=== PATIENT | male | born 1965 | race Caucasian/White ===

== ENCOUNTER 2016-10-09 12:15 | Emergency (ER) | payer OTHER ==
--- NOTE | 2016-10-09 12:35 | PDOC ---
History of Present Illness - General History Source: Patient Exam Limitations: No Limitations - History of Present Illness Initial Comments: 10/09/16 15:20 The patient is a 50 year old male with pmhx of hyperlipidemia (non compliant with medications) who presents to the ED with abdominal pain. Patient notes that the abdominal pain is localized to the RUQ radiating to the back. Patient reports that the pain was of sudden onset while he was sitting and watching TV. Patient notes that the pain worsened yesterday after eating chicken wings, fries and drinking soda during the SuperBowl. SH: Non smoker, occasional alcohol use, no illicit drug use <Olive Sellers - Last Filed: 10/09/16 16:12> <Aleksandr Liu - Last Filed: 10/09/16 16:27> - General Stated Complaint: ABD PAIN, BACK PAIN Time Seen by Provider: 10/09/16 12:34 Past History <Olive Sellers - Last Filed: 10/09/16 16:12> - Surgical History Abdominal Surgery: (hernia) - Psycho/Social/Smoking Cessation Hx Anxiety: No Suicidal Ideation: No Smoking History: Never smoked Have you smoked in the past 12 months: No Hx Alcohol Use: Yes (SOCIAL) Drug/Substance Use Hx: No Substance Use Type: None <Aleksandr Liu - Last Filed: 10/09/16 16:27> - Past Medical History Allergies/Adverse Reactions: Allergies Allergy/AdvReac Type Severity Reaction Status Date / Time No Known Allergies Allergy Verified 10/09/16 12:41 Home Medications: Ambulatory Orders Ondansetron [Zofran *Odt*] 8 mg SL TID #30 od.tablet 10/09/16 Oxycodone HCl/Acetaminophen [Percocet 5-325 mg Tablet] 1 - 2 tab PO Q4H #20 tablet MDD 6 10/09/16 Review of Systems - Review of Systems Able to Perform ROS?: Yes Comments:: 10/09/16 15:20 GENERAL/CONSTITUTIONAL: No fever or chills. No weakness. HEAD, EYES, EARS, NOSE AND THROAT: No change in vision. No ear pain or discharge. No sore throat. CARDIOVASCULAR: No chest pain or shortness of breath. RESPIRATORY: No cough, wheezing, or hemoptysis. GASTROINTESTINAL: +RUQ abdominal pain. No nausea, vomiting, diarrhea or constipation. GENITOURINARY: No dysuria, frequency, or change in urination. MUSCULOSKELETAL: No joint or muscle swelling or pain. No neck or back pain. SKIN: No rash NEUROLOGIC: No headache, vertigo, loss of consciousness, or change in strength/ sensation. ENDOCRINE: No increased thirst. No abnormal weight change. HEMATOLOGIC/LYMPHATIC: No anemia, easy bleeding, or history of blood clots. ALLERGIC/IMMUNOLOGIC: No hives or skin allergy. <Olive Sellers - Last Filed: 10/09/16 16:12> *Physical Exam - Vital Signs Last Vital Signs Temp Pulse Resp BP Pulse Ox 98.4 F 67 18 141/85 100 10/09/16 12:42 10/09/16 12:42 10/09/16 12:42 10/09/16 12:42 10/09/16 12:42 - Physical Exam Comments: 10/09/16 15:21 GENERAL: Awake, alert, and fully oriented, in no acute distress HEAD: No signs of trauma EYES: PERRLA, EOMI, sclera anicteric, conjunctiva clear ENT: Auricles normal inspection, hearing grossly normal, nares patent, oropharynx clear without exudates. Moist mucosa NECK: Normal ROM, supple, no lymphadenopathy, JVD, or masses LUNGS: Breath sounds equal, clear to auscultation bilaterally. No wheezes, and no crackles HEART: Regular rate and rhythm, normal S1 and S2, no murmurs, rubs or gallops ABDOMEN: +RUQ tenderness, negative Yeung's. Soft, normoactive bowel sounds. No guarding, no rebound. No masses EXTREMITIES: Normal range of motion, no edema. No clubbing or cyanosis. No cords, erythema, or tenderness NEUROLOGICAL: Cranial nerves II through XII grossly intact. Normal speech, normal gait SKIN: Warm, Dry, normal turgor, no rashes or lesions noted. <Olive Sellers - Last Filed: 10/09/16 16:12> ED Treatment Course - LABORATORY CBC & Chemistry Diagram: 10/09/16 13:16 10/09/16 13:16 - ADDITIONAL ORDERS Additional order review: Laboratory Results 10/09/16 13:16 Sodium 139 Potassium 4.2 Chloride 102 Carbon Dioxide 24 Anion Gap 13 BUN 20 H Creatinine 1.0 Creat Clearance w eGFR > 60 Random Glucose 134 H D Calcium 8.7 Total Bilirubin 0.7 AST 24 D ALT 35 Alkaline Phosphatase 103 Total Protein 7.3 Albumin 4.2 Lipase 129 10/09/16 13:16 RBC 5.27 MCV 85.2 MCHC 34.3 RDW 13.2 MPV 8.4 Neutrophils % 81.6 D Lymphocytes % 10.7 D Monocytes % 6.6 Eosinophils % 0.8 Basophils % 0.3 - RADIOLOGY Radiology Studies Ordered: 10/09/16 16:13 EXAM#: US/ABDOMEN US IMPRESSION: Multiple gallstones with diffuse thickening of its wall and without evidence of pericholecystic free fluid. Correlate clinically for further evaluation. Mild fatty infiltration of the liver versus hepatocellular disease. Please correlate with liver enzymes. - Medications Given in the ED: ED Medications Discontinued Medications Generic Name Dose Route Start Last Admin Trade Name Freq PRN Reason Stop Dose Admin Morphine Sulfate 4 mg 10/09/16 13:49 10/09/16 13:17 Morphine Injection - IVPUSH 10/09/16 13:50 4 mg ONCE ONE Administration Ondansetron HCl 4 mg 10/09/16 13:45 10/09/16 13:16 Zofran Injection IVPUSH 10/09/16 13:46 4 mg ONCE ONE Administration <Olive Sellers - Last Filed: 10/09/16 16:12> - LABORATORY CBC & Chemistry Diagram: 10/09/16 13:16 10/09/16 13:16 <Aleksandr Liu - Last Filed: 10/09/16 16:27> Medical Decision Making - Medical Decision Making 10/09/16 15:25 The patient is a 50 year old male with pmhx of HLD (non compliant with medication) who presents to the ED with RUQ abdominal pain. Will order imaging and labs and reassess after the results are back. <Olive Sellers - Last Filed: 10/09/16 16:12> *DC/Admit/Observation/Transfer - Attestations Scribe Attestion: 10/09/16 15:25 Documentation prepared by KELECHI Garcia, acting as medical intern for Aleksandr Liu MD/. <Olive Sellers - Last Filed: 10/09/16 16:12> - Discharge Dispostion Admit: No - Attestations Physician Attestion: 10/09/16 12:35 I, Dr. Aleksandr Liu, attest that this document has been prepared under my direction and personally reviewed by me in its entirety. I further attest, that it accurately reflects all work, treatment, procedures and medical decision -making performed by me. <Aleksandr Liu - Last Filed: 10/09/16 16:27> Diagnosis at time of Disposition: Calculus of gallbladder, Multiple gallstones - Discharge Dispostion Disposition: HOME Condition at time of disposition: Good - Prescriptions Prescriptions: Oxycodone HCl/Acetaminophen [Percocet 5-325 mg Tablet] 1 - 2 tab PO Q4H #20 tablet MDD 6 Ondansetron [Zofran *Odt*] 8 mg SL TID #30 od.tablet - Patient Instructions Additional Instructions: Chi- You need to follow up with a general surgeon to have your gall bladder taken out. Until that time you can not eat fat.... sorry. Return to us if worse or any new symptoms. Call Dr Marcos tomorrow tp set up the appointment. Percocet is only for outrageous pain .... Zofran is for Nausea or upset stomach. I hope you feel better soon- Best- Dr. Aleksandr Liu
[2016-10-09 12:43] VITALS: BMI 30.7
[2016-10-09] MEDS ORDERED: morphine CARPU-JECT 4 MG/1 ML DISP.SYRIN ONE (13:15)
[2016-10-09] MEDS ORDERED: ONDANSETRON 4 MG/2 ML VIAL ONE (13:15)
[2016-10-09 13:29] LABS: BASOPHIL 0.3 % (0-2.0); EOSINOPHIL 0.8 % (0-4.5); MCH 29.2 pg (25.7-33.7); MCHC 34.3 g/dl (32.0-35.9); MEAN CELL VOLUME 85.2 fl (80-96); MEAN PLT VOLUME 8.4 fl (7.5-11.1); NEUTROPHILS 81.6 % (42.8-82.8); PLATELET COUNT 165 K/MM3 (134-434); RDW 13.2 % (11.9-15.9); WHITE BLOOD COUNT 6.3 K/mm3 (4.0-10.0)
[2016-10-09] MEDS ORDERED: ONDANSETRON 4 MG/2 ML VIAL IVPUSH ONE (13:45)
[2016-10-09] MEDS ORDERED: morphine CARPU-JECT 4 MG/1 ML DISP.SYRIN IVPUSH ONE (13:49)
[2016-10-09 13:50] LABS: ALBUMIN 4.2 g/dl (3.4-5.0); ANION GAP 13 (8-16); BILIRUBIN,TOTAL 0.7 mg/dL (0.2-1.0); CALCIUM 8.7 mg/dL (8.5-10.1); CO2 24 mmol/L (21-32); GLUCOSE,RANDOM 134 mg/dL (74-106); SGOT/AST 24 U/L (15-37); SGPT/ALT 35 U/L (12-78); TOT PROT 7.3 g/dl (6.4-8.2)
[2016-10-09 13:51] LABS: ALK PHOS 103 U/L (45-117)
[2016-10-09 16:56] VITALS: BP 136/85; PULSE 78; TEMP 98.6
== END 2016-10-09 16:56 | disposition home or self-care (01) ==
LOC: JER 12:15
PROC: 3E033NZ Introduction of Analgesics, Hypnotics, Sedatives into Peripheral Vein, Percutaneous Approach (ICD-10-PCS; principal; 2016-10-09)
PROC: 3E033GC Introduction of Other Therapeutic Substance into Peripheral Vein, Percutaneous Approach (ICD-10-PCS; 2016-10-09)
DX: K80.80 Other cholelithiasis without obstruction (principal); E78.5 Hyperlipidemia, unspecified
CPT/HCPCS: 36415; 76705-TC; 80053; 83690; 85025; 99284-25

== ENCOUNTER 2017-01-01 10:45 | Emergency (ER) | payer OTHER ==
[2017-01-01 11:21] VITALS: BMI 30.7
[2017-01-01] MEDS ORDERED: SODIUM CHLORIDE 1,000 ML IV ONE (11:32)
[2017-01-01 12:05] LABS: BASOPHIL 0.2 % (0-2.0); EOSINOPHIL 0.2 % (0-4.5); MCH 29.1 pg (25.7-33.7); MCHC 34.1 g/dl (32.0-35.9); MEAN CELL VOLUME 85.3 fl (80-96); MEAN PLT VOLUME 8.4 fl (7.5-11.1); NEUTROPHILS 78.9 % (42.8-82.8); PLATELET COUNT 172 K/MM3 (134-434); RDW 13.6 % (11.9-15.9); WHITE BLOOD COUNT 6.4 K/mm3 (4.0-10.0)
[2017-01-01 12:23] LABS: ALBUMIN 4.4 g/dl (3.4-5.0); ALK PHOS 118 U/L (45-117); ANION GAP 13 (8-16); BILIRUBIN,TOTAL 0.8 mg/dL (0.2-1.0); CALCIUM 9.1 mg/dL (8.5-10.1); CO2 25 mmol/L (21-32); COCKROFT - GAULT 85.46; CREATININE 1.2 mg/dL (0.7-1.3); GLUCOSE,RANDOM 129 mg/dL (74-106); SGOT/AST 21 U/L (15-37); SGPT/ALT 38 U/L (12-78); TOT PROT 8.3 g/dl (6.4-8.2)
--- NOTE | 2017-01-01 12:51 | PDOC ---
History of Present Illness - General History Source: Patient, Old Records Exam Limitations: No Limitations - History of Present Illness Initial Comments: 01/01/17 14:13 The patient is a 51 year old male, with a significant past medical history of diverticulitis, who presents to the emergency department with nausea, vomiting and diarrhea since yesterday morning. The patient reports approximately 10 episodes of nonbilious nonbloody vomiting and diarrhea since yesterday. The patient additionally reports abdominal pain which he reports is worst in the RLQ. The patient reports that he took Pepto Bismol yesterday, with no relief of symptoms. The patient denies fever, chills or dysuria. The patient denies any bad foods, he reports that he consumed all the same food as the rest of his family over the past couple of days and no one else is experiencing similar symptoms. The patient denies any recent travel. Allergies: None reported. Past Surgical History: Cholecystectomy, Hernia Repair. Social History: Non smoker. Reports occasional alcohol consumption. Denies drug use. PCP: Dr. Allan Galindo <Yajaira Aarmbula - Last Filed: 01/01/17 16:50> <Acacia Lewis - Last Filed: 01/02/17 12:48> - General Chief Complaint: Pain Stated Complaint: ABD PAIN, VOMITING Time Seen by Provider: 01/01/17 12:37 Past History <Yajaira Arambula - Last Filed: 01/01/17 16:50> - Past Medical History GI Disorders: Yes (diverticulitis) - Surgical History Abdominal Surgery: Yes (hernia) Cholecystectomy: Yes - Psycho/Social/Smoking Cessation Hx Anxiety: No Suicidal Ideation: No Smoking History: Never smoked Have you smoked in the past 12 months: No Information on smoking cessation initiated: No Hx Alcohol Use: No Drug/Substance Use Hx: No Substance Use Type: Alcohol <Acacia Lewis - Last Filed: 01/02/17 12:48> - Past Medical History Allergies/Adverse Reactions: Allergies Allergy/AdvReac Type Severity Reaction Status Date / Time No Known Allergies Allergy Verified 01/01/17 11:21 Home Medications: Ambulatory Orders Ondansetron [Zofran -] 4 mg PO TID PRN #21 tablet 01/01/17 Review of Systems - Review of Systems Able to Perform ROS?: Yes Comments:: 01/01/17 13:54 GENERAL/CONSTITUTIONAL: No fever or chills. No weakness. HEAD, EYES, EARS, NOSE AND THROAT: No change in vision. No ear pain or discharge. No sore throat. CARDIOVASCULAR: No chest pain or shortness of breath. RESPIRATORY: No cough, wheezing, or hemoptysis. GASTROINTESTINAL: +Nausea, vomiting, diarrhea, abdominal pain. No constipation. GENITOURINARY: No dysuria, frequency, or change in urination. MUSCULOSKELETAL: No joint or muscle swelling or pain. No neck or back pain. SKIN: No rash. NEUROLOGIC: No headache, vertigo, loss of consciousness, or change in strength/ sensation. ENDOCRINE: No increased thirst. No abnormal weight change. HEMATOLOGIC/LYMPHATIC: No anemia, easy bleeding, or history of blood clots. ALLERGIC/IMMUNOLOGIC: No hives or skin allergy. <Yajaira Arambula - Last Filed: 01/01/17 16:50> *Physical Exam - Vital Signs Last Vital Signs Temp Pulse Resp BP Pulse Ox 98.5 F 95 H 18 130/90 100 01/01/17 11:05 01/01/17 11:05 01/01/17 11:05 01/01/17 11:05 01/01/17 11:05 - Physical Exam Comments: 01/01/17 14:11 GENERAL: Awake, alert, and fully oriented, in no acute distress. HEAD: No signs of trauma. EYES: PERRLA, EOMI, sclera anicteric, conjunctiva clear. ENT: Dry mucosa. Auricles normal inspection, hearing grossly normal, nares patent, oropharynx clear without exudates. NECK: Normal ROM, supple, no lymphadenopathy, JVD, or masses. LUNGS: Breath sounds equal, clear to auscultation bilaterally. No wheezes, and no crackles. HEART: Regular rate and rhythm, normal S1 and S2, no murmurs, rubs or gallops. ABDOMEN: RLQ tenderness with guarding. No rebound. Soft, normoactive bowel sounds. No masses. EXTREMITIES: Normal range of motion, no edema. No clubbing or cyanosis. No cords , erythema, or tenderness. NEUROLOGICAL: Cranial nerves II through XII intact. Normal speech, normal gait. SKIN: Warm, dry, normal turgor, no rashes or lesions noted. <[place],Yajaira - Last Filed: 01/01/17 16:50> - Vital Signs Last Vital Signs Temp Pulse Resp BP Pulse Ox 98.5 F 95 H 18 130/90 100 01/01/17 11:05 01/01/17 11:05 01/01/17 11:05 01/01/17 11:05 01/01/17 11:05 <Acacia Lewis - Last Filed: 01/02/17 12:48> ED Treatment Course - LABORATORY CBC & Chemistry Diagram: 01/01/17 11:43 01/01/17 11:43 - ADDITIONAL ORDERS Additional order review: Laboratory Results 01/01/17 11:43 Sodium 138 Potassium 4.0 Chloride 100 Carbon Dioxide 25 Anion Gap 13 BUN 27 H D Creatinine 1.2 Creat Clearance w eGFR > 60 Random Glucose 129 H Calcium 9.1 Total Bilirubin 0.8 AST 21 ALT 38 Alkaline Phosphatase 118 H Total Protein 8.3 H Albumin 4.4 Lipase 72 L 01/01/17 11:43 RBC 5.94 H MCV 85.3 MCHC 34.1 RDW 13.6 MPV 8.4 Neutrophils % 78.9 Lymphocytes % 8.7 Monocytes % 12.0 H D Eosinophils % 0.2 Basophils % 0.2 - Medications Given in the ED: ED Medications Discontinued Medications Generic Name Dose Route Start Last Admin Trade Name Freq PRN Reason Stop Dose Admin Sodium Chloride 1,000 mls @ 1,000 mls/hr 01/01/17 11:32 01/01/17 11:42 Normal Saline - IV 01/01/17 12:31 1,000 mls/hr ASDIR ONE Administration Ondansetron HCl 4 mg 01/01/17 12:53 01/01/17 13:00 Zofran Injection IVPUSH 01/01/17 12:54 4 mg ONCE ONE Administration <Yajaira Arambula - Last Filed: 01/01/17 16:50> - LABORATORY CBC & Chemistry Diagram: 01/01/17 11:43 01/01/17 11:43 - ADDITIONAL ORDERS Additional order review: Laboratory Results 01/01/17 11:43 Sodium 138 Potassium 4.0 Chloride 100 Carbon Dioxide 25 Anion Gap 13 BUN 27 H D Creatinine 1.2 Creat Clearance w eGFR > 60 Random Glucose 129 H Calcium 9.1 Total Bilirubin 0.8 AST 21 ALT 38 Alkaline Phosphatase 118 H Total Protein 8.3 H Albumin 4.4 Lipase 72 L 01/01/17 11:43 RBC 5.94 H MCV 85.3 MCHC 34.1 RDW 13.6 MPV 8.4 Neutrophils % 78.9 Lymphocytes % 8.7 Monocytes % 12.0 H D Eosinophils % 0.2 Basophils % 0.2 - Medications Given in the ED: ED Medications Discontinued Medications Generic Name Dose Route Start Last Admin Trade Name Sridevi PRN Reason Stop Dose Admin Sodium Chloride 1,000 mls @ 1,000 mls/hr 01/01/17 11:32 01/01/17 11:42 Normal Saline - IV 01/01/17 12:31 1,000 mls/hr ASDIR ONE Administration <Acacia Lewis - Last Filed: 01/02/17 12:48> Medical Decision Making - Medical Decision Making 01/01/17 16:50 EXAM: CT/ABDOMEN & PELVIS CT WITH CONTRAST Reviewed By: Dr. Harvey Burt IMPRESSION: The lung bases and the lower mediastinum are abnormal with multiple pulmonary nodules and adenopathy. Consider a dedicated CT scan of the chest. Prominent contrast-filled small bowel loops with contrast extending to the rectum. The findings are most consistent with ileus. The appendix is unremarkable. Clinical correlation is advised. There is diverticulosis in the sigmoid without CT evidence of diverticulitis. <Yajaira Arambula - Last Filed: 01/01/17 16:50> - Medical Decision Making CT no acute findings. Patient tolerated PO challenge. We discussed the pulmonary nodule finding- I encouraged outpatient PMD f/u to further evaluate this. <Acacia Lewis - Last Filed: 01/02/17 12:48> *DC/Admit/Observation/Transfer - Attestations Scribe Attestion: 01/01/17 13:20 Documentation prepared by Yajaira Arambula, acting as medical practitioners for Acacia Lewis MD. <Yajaira Arambula - Last Filed: 01/01/17 16:50> - Discharge Dispostion Admit: No <Acacia Lewis - Last Filed: 01/02/17 12:48> Diagnosis at time of Disposition: Abdominal pain Qualifiers: Abdominal location: right lower quadrant Qualified Code(s): R10.31 - Right lower quadrant pain - Discharge Dispostion Disposition: HOME Condition at time of disposition: Stable - Prescriptions Prescriptions: Ondansetron [Zofran -] 4 mg PO TID PRN #21 tablet PRN Reason: Nausea And/Or Vomiting - Patient Instructions Printed Discharge Instructions: DI for Abdominal Pain-Adult Additional Instructions: FOLLOW UP WITH YOUR DOCTOR ABOUT THE LUNG NODULES. - Post Discharge Activity Work/School Note: Back to Work
[2017-01-01] MEDS ORDERED: ONDANSETRON 4 MG/2 ML VIAL IVPUSH ONE (12:53)
[2017-01-01] MEDS ORDERED: ONDANSETRON 4 MG/2 ML VIAL ONE (12:56)
[2017-01-01] MEDS ORDERED: FAMOTIDINE 20 MG/50 ML IVPB 50 ML IVPB ONE ×2 (12:56)
[2017-01-01 16:46] VITALS: BP 111/70; PULSE 82; TEMP 98.4
== END 2017-01-01 17:53 | disposition home or self-care (01) ==
LOC: JER 10:45
PROC: 3E0337Z Introduction of Electrolytic and Water Balance Substance into Peripheral Vein, Percutaneous Approach (ICD-10-PCS; principal; 2017-01-01)
PROC: 3E033GC Introduction of Other Therapeutic Substance into Peripheral Vein, Percutaneous Approach (ICD-10-PCS; 2017-01-01)
DX: R10.31 Right lower quadrant pain (principal); Z87.19 Personal history of other diseases of the digestive system
CPT/HCPCS: 36415; 74177-TC; 80053; 83690; 85025; 99282-25; Q9967